=== PATIENT | female | born 1975 | race Caucasian/White ===

== ENCOUNTER 2016-10-31 12:02 | Emergency (ER) | payer OTHER ==
[~2016-10-31] VITALS: Ht 172.7 cm; Wt 85.0 kg
[~2016-10-31 12:02] MED LIST: CIPR500T2 PO; Z.0.NO CURRENT MEDS
[2016-10-31 12:06] VITALS: BP 150/85; PULSE 122; RESP 24; TEMP 97.9; O2SAT 96
[2016-10-31 13:11] LABS: AUTOMATED NEUTROPHIL # 3.6 TH/MM3 (1.8-7.7); BASOPHIL # 0.1 TH/MM3 (0-0.2); BASOPHIL % 1.2 % (0.0-2.0); EOSINOPHIL # 0.6 TH/MM3 (0-0.4); EOSINOPHIL % 8.9 % (0.0-4.0); HEMATOCRIT 42.7 % (35.0-46.0); HEMO FLAGS DIFF FINAL; LYMPH % 27.1 % (9.0-44.0); LYMPHOCYTE # 1.8 TH/MM3 (1.0-4.8); MEAN CELL VOLUME 94.1 FL (80.0-100.0); MEAN CORPUSCULAR HEMOGLOBIN 31.7 PG (27.0-34.0); MEAN CORPUSCULAR HGB CONC 33.7 % (32.0-36.0); MONO % 9.9 % (0.0-8.0); NEUT % 52.9 % (16.0-70.0); PLATELET COUNT 340 TH/MM3 (150-450); RED BLOOD COUNT 4.54 MIL/MM3 (4.00-5.30); RED CELL DISTRIBUTION WIDTH 13.6 % (11.6-17.2); WHITE BLOOD COUNT 6.8 TH/MM3 (4.0-11.0)
[2016-10-31 13:14] LABS: BLOOD, URINE NEG (NEG); COMMENT (UR) CULT NOT INDICATED; CULTURE IF INDICATED CULT NOT INDICATED; GLUCOSE,URINE NEG (NEG); HYALINE CAST, URINE 1 /lpf (RARE); KETONE, URINE TRACE mg/dL (NEG); MUCUS URINE FEW /lpf (OCC); NITRITE,URINE NEG (NEG); SQUAMOUS EPITHELIAL CELL URINE 2 /hpf (0-5); URINE COLOR YELLOW (YELLW/STRAW)
[2016-10-31 13:24] LABS: AMPHETAMINE, URINE NEG (NEG); BARBITURATES, URINE NEG (NEG); COCAINE, URINE NEG (NEG)
[2016-10-31 13:30] LABS: ALKALINE PHOSPHATASE 74 U/L (45-117); ALT (GPT) 49 U/L (10-53); TOTAL BILIRUBIN ADULT 0.5 MG/DL (0.2-1.0)
[2016-10-31 13:34] LABS: ANION GAP 11 MEQ/L (5-15); AST (GOT) 45 U/L (15-37); BICARBONATE 24.3 MEQ/L (21.0-32.0); BLOOD UREA NITROGEN 10 MG/DL (7-18); CHLORIDE 111 MEQ/L (98-107); GLOMERULAR FILTRATION RATE 68 ML/MIN (>89); SODIUM (NA) 146 MEQ/L (136-145)
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
== END 2016-10-31 15:26 | disposition home or self-care (01) ==
LOC: NEPD 12:02
DX: R53.83 Other fatigue (principal); R56.9 Unspecified convulsions; F17.200 Nicotine dependence, unspecified, uncomplicated; Z86.718 Personal history of other venous thrombosis and embolism; Z59.0 Homelessness; Z88.2 Allergy status to sulfonamides; Z88.1 Allergy status to other antibiotic agents; Z88.8 Allergy status to other drugs, medicaments and biological substances
CPT/HCPCS: 80053; 80307; 81001; 85025; 99283

== ENCOUNTER 2017-05-17 23:02 | Emergency (ER) | payer OTHER ==
[~2017-05-17] VITALS: Ht 157.5 cm; Wt 95.0 kg
[2017-05-17 23:04] VITALS: BP 137/78; PULSE 88; RESP 16; TEMP 97.8; O2SAT 100
--- NOTE | 2017-05-17 23:42 | PD ---
HPI Chief Complaint: Injury Time Seen by Provider: 23:38 Travel History International Travel<30 days: No Contact w/Intl Traveler<30days: No Traveled to known affect area: No History of Present Illness HPI The patient is a 41-year-old female who presents to the emergency department via private vehicle for left foot and ankle pain. The patient states she tripped apart, earlier today, injuring her left ankle. It was an inversion type injury. The pain is located over the lateral malleus and the base of the fourth and fifth metatarsal. Pain is worse with palpation and weightbearing. She does have a history of previous strain to the left ankle as well as previous crush injury to the left thigh. She denies any left knee pain with the injury. She denies any head injury, headache, or neck pain secondary to the fall. The patient's symptoms are mild to moderate, there are no current alleviating factors. PFSH Past Medical History Narrative Medical Crohn's disease Deep Vein Thrombosis: Yes (PORTAL VEIN CLOT) Kidney Stones: Yes Seizures: Yes (PER PT REPORT) Tetanus Vaccination: Unknown Influenza Vaccination: No ?: Not LMP: 04/22/17 Ovarian Cysts: Yes Past Surgical History Abdominal Surgery: Yes (ILLIOSTOMY, MULTIPLE BOWEL SURGERIES) Tonsillectomy: Yes Social History Alcohol Use: Yes (OCC) Tobacco Use: No Substance Use: No (DENIED) Allergies-Medications (Allergen,Severity, Reaction): Coded Allergies: Sulfa (Sulfonamide Antibiotics) (Unverified Allergy, Severe, SEIZURES, ) ephedrine (Verified Allergy, Severe, 05/17/17) seizures erythromycin base (Unverified Allergy, Severe, SEIZURE, 05/17/17) fluoxetine (Unverified Allergy, Severe, SEIZURE, 05/17/17) codeine (Verified Allergy, Unknown, 05/17/17) "generic codeine makes my hands and mouth turn blue, my dad said it was from the binding agent in it" diphenhydramine (Verified Allergy, Unknown, 05/17/17) "numbness from the waist down" Reported Meds & Prescriptions Reported Meds & Active Scripts Active No Active Prescriptions or Reported Medications Review of Systems Except as stated in HPI: all other systems reviewed are Neg HENT: No: Headaches, Neck Pain Cardiovascular: No: Chest Pain or Discomfort Respiratory: No: Shortness of Breath Gastrointestinal: No: Nausea, Vomiting Musculoskeletal: Positive: Limited ROM, Edema, Pain Neurologic: No: Paresthesia, Sensory Disturbance Physical Exam Narrative GENERAL: Awake, alert, pleasant 41 year-old female who appears her stated age and is in no acute respiratory distress. SKIN: Focused skin assessment warm/dry. HEAD: Atraumatic. Normocephalic. EYES: No injection or drainage MUSCULOSKELETAL: The patient is able flex the hip and left knee to 90. No tenderness of the proximal left tibia or fibula. Tenderness of the lateral malleus and at the base of the fourth and fifth metatarsal. No tenderness of the medial malleus. Positive dorsalis pedal pulses bilaterally. NEUROLOGICAL: Awake and alert. No obvious cranial nerve deficits. Motor grossly within normal limits. Normal speech. Sensation is intact of the medial , lateral, dorsal aspect of the left foot. PSYCHIATRIC: Appropriate mood and affect; insight and judgment normal. Data Data Last Documented VS Vital Signs Date Time Temp Pulse Resp B/P (MAP) Pulse Ox O2 Delivery O2 Flow Rate FiO2 05/17/17 23:40 Room Air 05/17/17 23:04 97.8 88 16 137/78 (97) 100 Orders Orders Ibuprofen (Motrin) (05/17/17 23:45) Ankle, Limited (Ap&Lat) (05/17/17 ) Foot, Limited (2vws) (05/17/17 ) MDM Medical Decision Making Medical Screen Exam Complete: Yes Emergency Medical Condition: Yes Medical Record Reviewed: Yes Interpretation(s) Last Impressions Foot X-Ray 05/17/17 0000 Signed Impressions: Service Date/Time: Wednesday, May 17, 2017 23:43 - CONCLUSION: 1. No acute findings. Allan Parrish MD Ankle X-Ray 05/17/17 0000 Signed Impressions: Service Date/Time: Wednesday, May 17, 2017 23:48 - CONCLUSION: 1. No acute findings. Allan Parrish MD Differential Diagnosis Differential diagnosis includes fracture, dislocation, sprain, strain, hematoma , contusion. Narrative Course The patient was administered ibuprofen 600 mg orally for pain. X-ray left ankle and left foot were obtained. X-ray left foot and left ankle are unremarkable. Prabhjot wrap was applied. The patient is advised to follow-up with a primary physician. Diagnosis Primary Impression: Left ankle pain Qualified Codes: M25.572 - Pain in left ankle and joints of left foot Patient Instructions: General Instructions Additional Instructions: Medications as directed. Prabhjot wrap as needed. Follow-up with a primary physician. Return if symptoms worsen or progress. Please provide the patient a copy of her x-ray results at discharge. Med/Other Pt SpecificInfo: Prescription(s) given Scripts Ibuprofen (Ibuprofen) 600 Mg Tab 600 MG PO Q6H Y for Pain/Inflammation, #20 TAB 0 Refills Prov: Marshall Paulson MD 05/18/17 Disposition: 01 DISCHARGE HOME Condition: Stable Marshall Paulson MD May 17, 2017 23:42
[2017-05-17] MEDS ORDERED: IBUPROFEN 600 MG TAB PO ONE (23:45)
--- NOTE | 2017-05-18 00:03 | RADRPT ---
EXAM DATE/TIME: 05/17/2017 23:43 [facility] COMPARISON: No previous studies available for comparison. INDICATIONS : Pain in left anterior foot. MEDICAL HISTORY : None. SURGICAL HISTORY : None. ENCOUNTER: Initial ACUITY: 1 day PAIN SCORE: 8/10 LOCATION: Left foot FINDINGS: Two view examination of the left foot demonstrates no soft tissue swelling, dislocation, or fracture. The calcaneus is intact. Bony mineralization is normal. CONCLUSION: 1. No acute findings. Allan Parrish MD on May 18, 2017 at 0:01 Board Certified Radiologist. This report was verified electronically.
--- NOTE | 2017-05-18 00:04 | RADRPT ---
EXAM DATE/TIME: 05/17/2017 23:48 [facility] COMPARISON: No previous studies available for comparison. INDICATIONS : Pain in left ankle. MEDICAL HISTORY : None. SURGICAL HISTORY : None. ENCOUNTER: Initial ACUITY: 1 day PAIN SCORE: 8/10 LOCATION: Left ankle FINDINGS: Two view exam was performed of the left ankle. The bony structures are in normal alignment. No evid ence of fracture, dislocation, or soft tissue swelling. No radiopaque foreign bodies are seen. Bony mineralization is normal. CONCLUSION: 1. No acute findings. Allan Parrish MD on May 18, 2017 at 0:02 Board Certified Radiologist. This report was verified electronically.
[2017-05-18] MEDS ORDERED: IBUP-232 PO (00:33)
== END 2017-05-18 00:50 | disposition home or self-care (01) ==
LOC: NEPE 23:02
DX: M25.572 Pain in left ankle and joints of left foot (principal)
CPT/HCPCS: 73600; 73620; 99283